=== PATIENT | male | born 1945 | race Caucasian/White ===

== ENCOUNTER 2021-07-04 08:25 | Day surgery (SDC) | payer BC ==
[2021-07-02 18:25] VITALS: BMI 26.6
[2021-07-04] MEDS ORDERED: ROPIVACAINE HCL/PF 100 MG/20 ML VIAL ONE (09:32)
[2021-07-04] MEDS ORDERED: MIDAZOLAM HCL 2 MG/2 ML SINGLE DOSE VIAL ONE (09:32)
[2021-07-04] MEDS ORDERED: PROPOFOL 20 ML ONE ×2 (11:06→12:14)
[2021-07-04] MEDS ORDERED: PROMETHAZINE HCL 25 MG/1 ML VIAL IVPUSH PRN (12:32)
[2021-07-04] MEDS ORDERED: oxyCODONE HCL 5 MG TABLET PO PRN ×2 (12:32)
[2021-07-04] MEDS ORDERED: ONDANSETRON 4 MG/2 ML VIAL IVPUSH PRN (12:32)
[2021-07-04] MEDS ORDERED: ACETAMINOPHEN 1000 MG/100 ML BAG IVPB PRN (12:34)
[2021-07-04] MEDS ORDERED: LACTATED RINGERS SOLUTION 1,000 ML IV SCH (12:45)
[2021-07-04 14:34] VITALS: TEMP 97.9
[2021-07-04 14:39] VITALS: BP 118/68; PULSE 72
== END 2021-07-04 14:25 | disposition home or self-care (01) ==
LOC: FASU 08:25
PROVIDERS: ATTEND Orthopaedic Surgery
PROC: 0LN50ZZ Release Right Lower Arm and Wrist Tendon, Open Approach (ICD-10-PCS; 2021-07-04)
PROC: 0PSH04Z Reposition Right Radius with Internal Fixation Device, Open Approach (ICD-10-PCS; principal; 2021-07-04 10:57)
DX: S52.571A Other intraarticular fracture of lower end of right radius, initial encounter for closed fracture (principal); X58.XXXA Exposure to other specified factors, initial encounter; Y93.9 Activity, unspecified; Y92.9 Unspecified place or not applicable
CPT/HCPCS: 73130-TC-RT-FY; 94760